=== PATIENT | female | born 1985 | race Caucasian/White ===

== ENCOUNTER 2016-08-06 10:58 | Emergency (ER) | payer OTHER ==
[2016-08-06 12:40] VITALS: BP 145/85
== END 2016-08-06 12:40 | disposition home or self-care (01) ==
LOC: ED 10:58
DX: R19.7 Diarrhea, unspecified (principal); R03.0 Elevated blood-pressure reading, without diagnosis of hypertension; Z79.899 Other long term (current) drug therapy
CPT/HCPCS: J1885

== ENCOUNTER 2016-09-13 19:33 | Emergency (ER) | payer OTHER ==
[2016-09-13 20:54] LABS: BASOPHIL % 0.5 % (0-2); PLATELET COUNT 252 x10^3mcL (130-400)
[2016-09-13 20:57] LABS: RED CELL DISTRIBUTION WIDTH 17.2 % (11.5-14.5)
[2016-09-13 21:02] LABS: ALBUMIN 3.4 g/dL (3.4-5.0); ALKALINE PHOSPHATASE 57 U/L (46-116); ALT/SGPT 38 U/L (14-59); AST/SGOT 21 U/L (15-37); BILIRUBIN TOTAL 0.1 mg/dL (0.20-1.00); CARBON DIOXIDE 28.3 mmol/L (21-32); CHLORIDE SERUM 104 mmol/L (98-107); CREATININE SERUM 0.9 mg/dL (0.6-1.0); GFR1 > 60 mL/min; GLUCOSE SERUM 97 mg/dL (74-106); LIPASE 275 IU/L (73-393); POTASSIUM SERUM 4.2 mmol/L (3.5-5.1); SODIUM SERUM 138 mmol/L (136-145); TOTAL PROTEIN, SERUM 7.7 g/dL (6.4-8.2)
[2016-09-13 21:06] LABS: CALCIUM 8.7 mg/dL (8.5-10.1)
[2016-09-13 23:06] VITALS: BP 130/75
== END 2016-09-13 23:06 | disposition home or self-care (01) ==
LOC: ED 19:33
PROVIDERS: Emergency Medicine
DX: R10.30 Lower abdominal pain, unspecified (principal)
CPT/HCPCS: J1885; J2405; J3010; J3490; Q0092